=== PATIENT | male | born 1945 | race Hispanic/Latino ===

== ENCOUNTER → 2023-02-20 | Outpatient (CLI) | payer MEDICARE | END | disposition home or self-care (01) | LOC: RAH 08:24 | PROVIDERS: ATTEND Internal Medicine Gastroenterology | DX: K21.9 Gastro-esophageal reflux disease without esophagitis (principal); K57.10 Diverticulosis of small intestine without perforation or abscess without bleeding; R13.10 Dysphagia, unspecified | CPT/HCPCS: 74240 ==